=== PATIENT | female | born 1945 | race Caucasian/White ===

== ENCOUNTER 2016-09-15 17:15 | Emergency (ER) | payer OTHER, MEDICAID ==
[~2016-09-15] VITALS: Ht 162.6 cm; Wt 69.6 kg
[~2016-09-15 17:15] MED LIST: CEPH-443 PO; DICL75TA2 PO; GABA100C14 PO; HYDR-3498 PO; IBUP400T22 PO; NITR-58 PO; PHEN-538 PO; PHEN-616 PO; PREMVAG VAG; [UNRECOGNIZED DRUG - CODE] PO; [UNRECOGNIZED DRUG - REMARK]
[2016-09-15 17:47] VITALS: Ht 162.6 cm; Wt 69.6 kg
[2016-09-15] MEDS ORDERED: AZIT250T94 PO (19:13)
[2016-09-15] MEDS ORDERED: IBUP400T22 PO (19:13)
[2016-09-15] MEDS ORDERED: UDROBDM PO (19:13)
--- NOTE | 2016-09-15 19:16 | ERD ---
ER Documentation Chief Complaint Date/Time DATE: 09/15/16 TIME: 19:15 Chief Complaint HEADACHE,BACK PAIN,LEFT SHOULDER PAIN HPI 71-year-old female presents with a productive cough for last 3 days and bitemporal headache neck pain and trapezius pain. She denies any history of trauma, or inciting events. She denies any fevers, chest pain or shortness breath or vomiting or abdominal pain or bowel bladder incontinence. ROS All systems reviewed and are negative except as per history of present illness. Medications Home Meds Active Scripts Azithromycin* (Zithromax*) 250 Mg Tablet, 250 MG PO .ZPACK DIRECTED, #6 TAB TAKE 500 MG (2 TABS) THE FIRST DAY THEN 250 MG (1 TAB) DAYS 2-5 Prov:VANNA OBRIEN MD 09/15/16 Guaifenesin-Dextromethorphan* (Robitussin* DM) 100MG/10MG/5ML Syrup, 5 ML PO Q4H Y for COUGH for 4 Days, ML 4 OZ Prov:VANNA OBRIEN MD 09/15/16 Ibuprofen* (Motrin*) 400 Mg Tab, 400 MG PO Q6, #15 TAB Prov:VANNA OBRIEN MD 09/15/16 Phenazopyridine Hcl* (Pyridium*) 200 Mg Tab, 200 MG PO TID Y for URINARY PAIN for 2 Days, #6 TAB Prov:MARIA GUADALUPE FOUNTAIN PA-C 06/02/16 Hydrocodone Bit-Acetaminophen* ([place]*) 5-325 Mg Tab, 1 TAB PO Q4H Y for PAIN for 3 Days, TAB Prov:ELZA DAVENPORT 12/03/15 Ibuprofen* (Motrin*) 400 Mg Tab, 400 MG PO Q6, #30 TAB Prov:ELZA DAVENPORT 12/03/15 Cephalexin* (Keflex*) 500 Mg Capsule, 500 MG PO BID for 7 Days, CAP Prov:DIANELYS HARDEN 02/12/15 Phenazopyridine Hcl* (Phenazopyridine Hcl*) 200 Mg Tablet, 200 MG PO TID for 2 Days, TAB Prov:MARIA GUADALUPE FOUNTAIN PA-C 02/03/15 Nitrofurantoin Monohyd Macrocr* (Macrobid*) 100 Mg Capsr, 100 MG PO BID for 5 Days, CAP Prov:MARIA GUADALUPE FOUNTAIN PA-C 02/03/15 Cephalexin* (Keflex*) 500 Mg Capsule, 500 MG PO QID for 7 Days, CAP Prov:IBETH VALDEZ PA-C 12/27/14 Estrogens Conjugated* (Premarin* Vaginal Cream) 1 Applic Cr, 1 APPLIC VAG BID, # 14 TUB Prov:IBETH VALDEZ PA-C 12/27/14 Reported Medications [states names unknown family to bring list] No Conflict Check 09/17/12 Misoprostol (Cytotec) 200 Mcg Tablet, 200 MCG PO BID 01/13/12 Gabapentin* (Gabapentin*) 100 Mg Capsule, 200 MG PO HS 01/13/12 Diclofenac Sodium* (Diclofenac Sodium*) 75 Mg Tablet.dr, 75 MG PO BID 01/13/12 Allergies Allergies: Coded Allergies: No Known Drug Allergies (Verified Allergy, Unknown, 01/31/14) PMhx/Soc History of Surgery: No Anesthesia Reaction: No Hx Neurological Disorder: No Hx Respiratory Disorders: No Hx Cardiac Disorders: Yes (HTN, ) Hx Psychiatric Problems: No Hx Alcohol Use: No Hx Substance Use: No Hx Tobacco Use: No Physical Exam Vitals Vital Signs Date Time Temp Pulse Resp B/P Pulse Ox O2 Delivery O2 Flow Rate FiO2 09/15/16 17:47 98.1 77 18 134/76 98 Physical Exam Const: [] Alert, [id number], pleasant Head: Atraumatic Eyes: Normal Conjunctiva ENT: Normal External Ears, Nose and Mouth. TMs and oropharynx normal. Neck: Full range of motion..~ No meningismus. Resp: Clear to auscultation bilaterally patient has a slight coarse cough without rales or wheezing retractions Cardio: Regular rate and rhythm, no murmurs Abd: Soft, non tender, non distended. Normal bowel sounds Skin: No petechiae or rashes Back: No midline or flank tenderness. There is some reproducible tenderness in the trapezius, paraspinous muscles of the neck involving the bitemporal area. Without palpable pulsatile masses. Ext: No cyanosis, or edema Neur: Awake and alert Psych: Normal Mood and Affect Procedures/MDM Patient presents with URI symptoms, symptoms of a tension headache and pain in the paraspinous muscles of the neck and trapezius consistent with a tension headache likely related to cough. There is no evidence of hypoxemia, respiratory distress and patient was treated with ibuprofen, Robitussin and Zithromax. The patient was stable with no new complaints during the ER course. Clinically, there is no current evidence to suggest meningitis, sepsis, acute abdomen, pneumonia, acute coronary syndrome, pulmonary embolism, or any other emergent condition appearing to require further evaluation or hospitalization. The patient should certainly return for any new or worsening symptoms per the aftercare instructions. They should otherwise follow-up with her primary care doctor for reevaluation this week. Departure Diagnosis: Primary Impression: URI (upper respiratory infection) URI type: unspecified URI Qualified Code: J06.9 - Upper respiratory tract infection, unspecified type Additional Impression: Neck pain Condition: Stable Patient Instructions: Acute Bronchitis, Neck Pain, No Trauma Additional Instructions: Cheque otro vez con garcia doctor primario en el proximo kat or regresa para mas o nueva simptomas. VANNA OBRIEN MD Sep 15, 2016 19:16
[2016-09-15 19:34] VITALS: BP 106/59; PULSE 69; RESP 18; TEMP 97.6
== END 2016-09-15 19:34 | disposition home or self-care (01) ==
LOC: FTE 17:15
DX: J06.9 Acute upper respiratory infection, unspecified (principal); M54.2 Cervicalgia; I10 Essential (primary) hypertension; E11.9 Type 2 diabetes mellitus without complications
CPT/HCPCS: 99283

== ENCOUNTER 2016-09-17 15:28 | Emergency (ER) | payer OTHER, MEDICAID ==
[~2016-09-17] VITALS: Wt 70.0 kg
[~2016-09-17 15:28] MED LIST changes: +AZIT250T94 PO; +UDROBDM PO
[2016-09-17] MEDS ORDERED: ALBU8.5H3 INH (16:59)
[2016-09-17] MEDS ORDERED: LEVO500T72 PO (16:59)
[2016-09-17] MEDS ORDERED: TRAM50TA2 PO (17:02)
--- NOTE | 2016-09-17 17:26 | ERD ---
ER Documentation Chief Complaint Date/Time DATE: 09/17/16 TIME: 17:13 Chief Complaint sinus congestion HPI This is 71-year-old female complains of 7-9 days of bilateral maxillary facial pain. She says she has some nasal congestion and cough with some clear productive sputum for the past couple days as well. No fevers no headaches she says her face feels like a dull and constant pain worse when looking down and forward. No nausea vomiting diarrhea no abdominal pain shortness of breath no visual changes no focal neurologic complaints ROS All systems reviewed and are negative except as per history of present illness. Medications Home Meds Active Scripts Tramadol HCl (Tramadol HCl) 50 Mg Tablet, 50 MG PO Q6 Y for PAIN, #20 TAB Prov:DARON FUENTES DO 09/17/16 Albuterol Sulfate* (Proair HFA*) 8.5 Gm Hfa.aer.ad, 2 PUFF INH Q4, #1 INHALER Prov:DARON FUENTES DO 09/17/16 Levofloxacin* (Levaquin*) 500 Mg Tablet, 500 MG PO DAILY for 7 Days, TAB Prov:DARON FUENTES DO 09/17/16 Azithromycin* (Zithromax*) 250 Mg Tablet, 250 MG PO .KpPACK DIRECTED, #6 TAB TAKE 500 MG (2 TABS) THE FIRST DAY THEN 250 MG (1 TAB) DAYS 2-5 Prov:VANNA OBRIEN MD 09/15/16 Guaifenesin-Dextromethorphan* (Robitussin* DM) 100MG/10MG/5ML Syrup, 5 ML PO Q4H Y for COUGH for 4 Days, ML 4 OZ Prov:VANNA OBRIEN MD 09/15/16 Ibuprofen* (Motrin*) 400 Mg Tab, 400 MG PO Q6, #15 TAB Prov:VANNA OBRIEN MD 09/15/16 Phenazopyridine Hcl* (Pyridium*) 200 Mg Tab, 200 MG PO TID Y for URINARY PAIN for 2 Days, #6 TAB Prov:MARIA GUADALUPE FOUNTAIN PA-C 06/02/16 Hydrocodone Bit-Acetaminophen* ([place]*) 5-325 Mg Tab, 1 TAB PO Q4H Y for PAIN for 3 Days, TAB Prov:ELZA DAVENPORT 12/03/15 Ibuprofen* (Motrin*) 400 Mg Tab, 400 MG PO Q6, #30 TAB Prov:ELZA DAVENPORT 12/03/15 Cephalexin* (Keflex*) 500 Mg Capsule, 500 MG PO BID for 7 Days, CAP Prov:DIANELYS HARDENJuan Pablo 02/12/15 Phenazopyridine Hcl* (Phenazopyridine Hcl*) 200 Mg Tablet, 200 MG PO TID for 2 Days, TAB Prov:MARIA GUADALUPE FOUNTAIN PA-C 02/03/15 Nitrofurantoin Monohyd Macrocr* (Macrobid*) 100 Mg Capsr, 100 MG PO BID for 5 Days, CAP Prov:MARIA GUADALUPE FOUNTAIN PA-C 02/03/15 Cephalexin* (Keflex*) 500 Mg Capsule, 500 MG PO QID for 7 Days, CAP Prov:IBETH VALDEZ PA-C 12/27/14 Estrogens Conjugated* (Premarin* Vaginal Cream) 1 Applic Cr, 1 APPLIC VAG BID, # 14 TUB Prov:IBETH VALDEZ PA-C 12/27/14 Reported Medications [states names unknown family to bring list] No Conflict Check 09/17/12 Misoprostol (Cytotec) 200 Mcg Tablet, 200 MCG PO BID 01/13/12 Gabapentin* (Gabapentin*) 100 Mg Capsule, 200 MG PO HS 01/13/12 Diclofenac Sodium* (Diclofenac Sodium*) 75 Mg Tablet.dr, 75 MG PO BID 01/13/12 Allergies Allergies: Coded Allergies: No Known Drug Allergies (Verified Allergy, Unknown, 01/31/14) PMhx/Soc History of Surgery: No Anesthesia Reaction: No Hx Neurological Disorder: No Hx Respiratory Disorders: No Hx Cardiac Disorders: Yes (HTN, ) Hx Psychiatric Problems: No Hx Alcohol Use: No Hx Substance Use: No Hx Tobacco Use: No FmHx Family History: No coronary disease Physical Exam Vitals Vital Signs Date Time Temp Pulse Resp B/P Pulse Ox O2 Delivery O2 Flow Rate FiO2 09/17/16 15:34 98.1 65 20 172/91 99 Physical Exam Const: Well-developed, well-nourished Head: Atraumatic, normocephalic Eyes: Normal Conjunctiva, PERRLA, EOMI, normal sclera, no nystagmus ENT: Normal External Ears, Nose and Mouth, moist mucus membranes, there is bilateral maxillary tenderness to palpation and left frontal sinus tenderness no erythema. Neck: Full range of motion. No meningismus, no lymphadenopathy. Resp: Clear to auscultation bilaterally, no wheezing, rhonchi, rales Cardio: Regular rate and rhythm, no murmurs, S1 S2 present Abd: Soft, non tender x 4, non distended. Normal bowel sounds, no guarding or rebound, no pulsitile abdominal masses or bruits Skin: No petechiae or rashes, no ecchymosis , no maculopapular rash Back: No midline or flank tenderness Ext: No cyanosis, or edema, FROM x 4, normal inspection, neurovascularly intact x 4 Neur: Awake and alert, STR 5/5 x 4, sensation intact x 4, no focal findings, cerebellum intact Psych: Normal Mood and Affect Procedures/MDM Patient has sinusitis and URI. Will give her some Levaquin. She is currently on Zithromax which I told her to stop she is nontoxic and well-appearing Departure Diagnosis: Primary Impression: Sinusitis Sinusitis location: maxillary Chronicity: subacute Qualified Code: J01.00 - Subacute maxillary sinusitis Additional Impression: URI (upper respiratory infection) URI type: unspecified viral URI Qualified Code: J06.9 - Viral upper respiratory tract infection Condition: Stable Patient Instructions: Acute Sinusitis Referrals: NIEVES VALDEZ MD (PCP) DARON FUENTES DO Sep 17, 2016 17:25
== END 2016-09-17 17:17 | disposition home or self-care (01) ==
LOC: E/R 15:28
DX: J01.00 Acute maxillary sinusitis, unspecified (principal); J06.9 Acute upper respiratory infection, unspecified; I10 Essential (primary) hypertension; E11.9 Type 2 diabetes mellitus without complications

== ENCOUNTER 2017-08-30 07:30 | Emergency (ER) | END 2017-08-30 08:30 | disposition home or self-care (01) ==